=== PATIENT | female | born 1995 | race Caucasian/White ===

== ENCOUNTER → 2018-03-02 | Outpatient (CLI) | payer BC ==
[~2018-03-02] MED LIST: ACET-1256 PO; HYDR-5688 PO
--- NOTE | 2018-03-02 08:48 | DIAGNOSTIC IMAGING REPORT ---
ABDOMINAL ULTRASOUND, RIGHT UPPER QUADRANT HISTORY: Right upper quadrant abdominal pain. COMPARISON: None. FINDINGS: This exam is mildly compromised by suboptimal penetration. Liver morphology is normal. No hepatic lesions are identified. No gallstones are identified. There is no significant gallbladder wall thickening. No biliary ductal dilatation is present. Common bile duct measures 4 mm in caliber. The pancreatic body is normal. The head and tail are partially obscured. There is no right hydronephrosis. IMPRESSION: 1. No significant abnormality identified within the right upper quadrant. 2. Study mildly compromised by suboptimal penetration. Electronically signed by: Alexandro Gandhi M.D. 03/02/2018 8:47 AM Dictated Date/Time: 03/02/2018 8:45 AM
== END | disposition home or self-care (01) ==
LOC: C.ULTR 08:15
PROVIDERS: ATTEND Nurse Practitioner Family
DX: R10.11 Right upper quadrant pain (principal)

== ENCOUNTER → 2018-03-16 | Outpatient (CLI) | payer BC ==
[~2018-03-16] MED LIST changes: +SINCALIDE INJ 2.6 MCG in SODIUM CHLORIDE 0.9% 100ML 100 ML IV SCH
--- NOTE | 2018-03-16 12:35 | DIAGNOSTIC IMAGING REPORT ---
HEPATOBILIARY EF IMAGING CLINICAL HISTORY: 22 years-old Female with RUQ PAIN,R/O GALLBLADDER DIS. Acute right upper quadrant abdominal pain TECHNIQUE: Following the intravenous administration of 5.6 mCi of technetium-99m Choletec, sequential abdominal images were obtained. In order to evaluate the contractile response of the gallbladder, 2.6 mcg of Kinevac was administered by slow intravenous infusion over 30 min starting approximately 60 min after the administration of the radiopharmaceutical. Sequential imaging was continued for 45 min after the start of the Kinevac infusion. COMPARISON: Right upper quadrant ultrasound 03/02/2018 FINDINGS: There is prompt, uniform accumulation of the tracer by the liver. There is normal filling of the intrahepatic ducts, common bile duct and gallbladder and normal excretion of the tracer into the duodenum. There is adequate contraction of the gallbladder. The calculated gallbladder ejection fraction is 58 (normal >40%). There is no significant enterogastric reflux. IMPRESSION: 1. Normal contractile response of the gallbladder to Kinevac infusion. 2. Normal biliary imaging study. The above report was generated using voice recognition software. It may contain grammatical, syntax or spelling errors. Electronically signed by: Christopher Rodriguez M.D. 03/16/2018 12:34 PM Dictated Date/Time: 03/16/2018 12:30 PM
== END | disposition home or self-care (01) ==
LOC: C.NUCL 10:09
PROVIDERS: ATTEND Nurse Practitioner Family
DX: R10.11 Right upper quadrant pain (principal)